=== PATIENT | male | born 1960 | race African-American/Black ===

== ENCOUNTER 2017-10-21 00:27 | Emergency (ER) | payer OTHER ==
[~2017-10-21] VITALS: Ht 175.3 cm; Wt 125.0 kg
[2017-10-21 02:25] VITALS: BP 168/94
== END 2017-10-21 02:48 | disposition home or self-care (01) ==
LOC: ER 00:27
DX: S62.316A Displaced fracture of base of fifth metacarpal bone, right hand, initial encounter for closed fracture (principal); R55 Syncope and collapse; E11.9 Type 2 diabetes mellitus without complications; I10 Essential (primary) hypertension; V89.2XXA Person injured in unspecified motor-vehicle accident, traffic, initial encounter; Y93.89 Activity, other specified; Y92.89 Other specified places as the place of occurrence of the external cause; Y99.8 Other external cause status
CPT/HCPCS: 29125; 71045; 73130; 99284; Z7610